=== PATIENT | female | born 1985 | race Caucasian/White ===

== ENCOUNTER 2016-07-07 13:00 | Emergency (ER) | payer OTHER ==
[~2016-07-07] VITALS: Ht 162.6 cm; Wt 109.5 kg
[2016-07-07 13:51] LABS: PATH.CAST-FLAG NOT PRESENT; SPERM-FLAG NOT PRESENT; SRC-FLAG NOT PRESENT; XTAL-FLAG NOT PRESENT; YLC-FLAG NOT PRESENT
[2016-07-07 14:05] LABS: HCG UR OBC PASS
[2016-07-07] MEDS ORDERED: NORG1TAB65 PO (14:14)
[2016-07-07] MEDS ORDERED: MAALOX/HYOSCYAMINE/LIDOCAINE 45 ML BOTTLE PO ONE (14:30)
[2016-07-07] MEDS ORDERED: MAALOX/HYOSCYAMINE/LIDOCAINE 45 ML BOTTLE ONE (14:32)
[2016-07-07 15:28] LABS: ASPARTATE AMINO TRANSFERASE 12 U/L (15-37); BLOOD UREA NITROGEN 8 mg/dL (7-18)
[2016-07-07 16:19] VITALS: BP 122/55
== END 2016-07-07 16:24 | disposition home or self-care (01) ==
LOC: ED 15:08
DX: K25.3 Acute gastric ulcer without hemorrhage or perforation (principal); R10.12 Left upper quadrant pain; Z90.49 Acquired absence of other specified parts of digestive tract
CPT/HCPCS: 36415; 74000; 80053; 81001; 81025; 83690; 84703; 85025; 99285